=== PATIENT | female | born 1950 ===

== ENCOUNTER → 2022-05-05 | Outpatient (REF) | payer SELFPAY | END | disposition home or self-care (01) | LOC: OLS.AHA 04:55 | DX: K76.9 Liver disease, unspecified (principal) | CPT/HCPCS: 82140 ==

== ENCOUNTER → 2022-05-12 | Outpatient (REF) | payer SELFPAY | END | disposition home or self-care (01) | LOC: OLS.AHA 06:45 | DX: K76.9 Liver disease, unspecified (principal); R79.89 Other specified abnormal findings of blood chemistry | CPT/HCPCS: 82140 ==